=== PATIENT | male | born 1935 | race Asian ===

== ENCOUNTER → 2025-03-04 10:41 | Outpatient (CLI) | payer MEDICARE, OTHER, SELFPAY ==
--- NOTE | 2025-03-04 16:28 | ST.SWALLOW ---
Visit Care Team Role Provider Type AGNES De Guzman Attending Provider Non-Staff Primary Care Provider Referring Provider Specialty: Nursing Address: [address] [place] [address], [facility] Email: Modified Barium Swallow Study [employer] Modified Barium Swallow Study Start: 03/04/25 15:44 Freq: Status: Active Protocol: Document 03/04/25 15:45 LNK (Rec: 03/04/25 16:28 LNK Desktop) Modified Barium Swallow Study Total Time Visit Start Time 12:00 Visit Stop Time 12:30 Total Visit Minutes 30 Referral Referring Physician Edgar ARNP Reason for Referral dysphagia Setting Setting Outpatient Care Patient Information Identification Type Name,Date of Patient History Pt was seen for a Modified Barium Swallow Study with c/ o difficulty swallowing over the past 2-3 months, worsening during the past 2-3 weeks. Pt described his swallow as food and medications/supplements getting stuck in his throat (pointing to sternal notch area). Pt stated that he will eat a few bites and then food is stuck. He then drinks some water, which relieves the stuck feeling. He noted he is chewing foods to a puree consistency to try to ease his swallow. Pt denied a [facility] neurologic diagnoses, GERD or head/neck surgery or injury. Subjective Pt was seated in the flouroscopy chair with directions Observations and procedures explained for him. He indicated he understood and agreed to proceed. Patient Positioning Position View Lat-A/P Imaging Lateral View Textures Administered Trials Presented Thin Liquid via Spoon (IDDSI 0),Thin Liquid via Cup ( IDDSI 0),Extremely Thick Liquid via Spoon (IDDSI 4), Regular (IDDSI 7) Barium Tablet Yes The IDDSI Framework Protocol: IDDSI.1 Oral Impairment Source: The Modified Barium Swallow Impairment Profile (MBSImP??) Lip Closure No labial escape Tongue Control Cohesive bolus between tongue to palatal seal During Bolus Hold Bolus Preparation/ Timely & efficient chewing & mashing Mastication Bolus Transport/ Brisk tongue motion Lingual Motion Oral Residue Complete oral clearance Initiation of Bolus head at posterior laryngeal surface of epiglottis Pharyngeal Swallow Additional Oral Oral phase WNL Impairment *OME and DKS were observed to be WNL. Observations *Dentition consisted of an upper denture and lower partial denture. Lower anterior teeth were natural. Pt noted upper denture and lower partial fit well *Mastication observed with rotary chew pattern. *Good bolus formation, control and AP transition. *Velopharyngeal closure was WNL. Pharyngeal Impairment Source: The Modified Barium Swallow Impairment Profile (MBSImP??) Soft Palate No bolus between soft palate & pharyngeal wall Elevation Laryngeal Elevation Comp.sup.move.thyroid cart.w/comp.approx.arytenoids to epiglot petiole Anterior Hyoid Complete anterior movement Excursion Epiglottic Movement Complete inversion Laryngeal Vestibular Complete; no air/contrast in laryngeal vestibule Closure Pharyngeal Stripping Present - complete Wave Pharyngoesophageal Complete distention & complete duration; no obstruction Segment Opening of flow Tongue Base No contrast between tongue base & posterior pharyngeal Retraction wall Pharyngeal Residue Complete pharyngeal clearance Location Tongue base Additional Pharyngeal phase WNL Pharyngeal *CP bare noted Impairment *Flash penetration observed with consecutive swallows Observations (WNL for pt's age) *Adequate hyolaryngeal elevation and movement *Complete epiglottal inversion *UES duration and extension adequate *Trace to no contrast residual within pharynx A/P View Textures Administered Trials Presented Thin Liquid via Cup (IDDSI 0) The IDDSI Framework Protocol: IDDSI.1 A/P View Observations Esophageal Clearance Minimal to no esophageal clearance Upright Position Vocal Fold Function Good Esophageal Function Slowed Clearing,Reverse Peristalsis,Stasis,Narrowing Additional A-P *Significant retention of contrast observed initially Observations from near cardiac bulb to above the diaphragm near area of L3-L4 *Significantly narrowed esophageal tissue from L3-L4 to the stomach *Restricted flow of esophageal contents to stomach; partial clearance of esophageal contents with water swallow *Enlarged esophagus (hiatal hernia??) observed *Tortuous esophagus/spasm observed with retrograde flow of esophageal contents to the clavicles/UES. *Barium tablet trialed, but contents of esophagus prevented observation of tablet Clinical Impressions Dysphagia Type Esophageal Findings Esophageal dysphagia with retention of contrast and enlarged esophagus with restricted flow to the stomach were observed. Tortuous esophagus/spasm that when contracted pushed esophageal contents upward to clavicular area. The results were reviewed and discussed with the pt using still images taken during the videoflouroscopy procedure. The pt was encouraged to f/u with PCP re: GI referral. Safe swallow strategies were discussed with the pt GI referral recommended Patient Appropriate No for Therapy Recommendations Diet Comments no change in diet Treatment Plan Recommended GI Consult Referrals
== END ==
PROVIDERS: PCP Nurse Practitioner Acute Care; Referring Provider Nurse Practitioner Acute Care; Visit Provider Nurse Practitioner Acute Care
DX: R13.10 Dysphagia, unspecified (principal)
CPT/HCPCS: 74230; 92611